=== PATIENT | female | born 1950 | race Asian ===

== ENCOUNTER 2021-01-09 10:06 | Day surgery (SDC) | payer MEDICARE, SELFPAY ==
--- NOTE | 2021-01-08 13:28 | HO.ANESPROP2 ---
Documented by User: Corrina Mike NP 01/08/21 13:29 HPI - Anesthesia Eval Consult details Narrative: 70yo F for Colonoscopy [facility] Past Medical History Medical History Hypercholesteremia Hypertension Non-insulin dependent type 2 diabetes mellitus Rectal cancer Surgical History Surgical History H/O colonoscopy H/O endoscopy H/O left breast biopsy H/O: Social History Social History Patient Tobacco Use Status: Never used Tobacco Second Hand Smoke Exposure: No Use of substances other than those prescribed or required for medical reasons: No Are you DNR?: No Advance Directives: No Advance Directives Information Provided: Yes Advance Directives on File: No Meds Allergies Allergy/AdvReac Type Severity Reaction Status Date / Time No Known Allergies Allergy Unverified 12/01/19 15:24 [No Known Allergies*] Home Medications Medication Instructions Recorded Confirmed Last Taken Type Janumet 1 tab PO BID 01/08/21 01/08/21 Unknown History amlodipine 1 tab PO DAILY 01/08/21 01/08/21 Unknown History aspirin 1 tab PO DAILY 01/08/21 01/08/21 Unknown History atorvastatin 1 tab PO BEDTIME 01/08/21 01/08/21 Unknown History glipizide 1 tab PO DAILY 01/08/21 01/08/21 Unknown History irbesartan 1 tab PO DAILY 01/08/21 01/08/21 Unknown History metoprolol succinate 1 tab PO DAILY 01/08/21 01/08/21 01/09/21 08:00 History multivitamin 01/08/21 Unknown History Exam Exam Date and Time: January 08, 2021 132 Assessment and Plan Assessment Anesthesia Assessment: Chart Reviewed Documented by User: Delfina Loera MD 01/09/21 11:27 [facility] Past Medical History Medical History Hypercholesteremia Hypertension Non-insulin dependent type 2 diabetes mellitus Rectal cancer Surgical History Surgical History H/O colonoscopy H/O endoscopy H/O left breast biopsy H/O: History of Problems with Anesthesia: No Social History Social History Patient Tobacco Use Status: Never used Tobacco Second Hand Smoke Exposure: No Use of substances other than those prescribed or required for medical reasons: No Are you DNR?: No Advance Directives: No Advance Directives Information Provided: Yes Advance Directives on File: No Meds Allergies Allergy/AdvReac Type Severity Reaction Status Date / Time No Known Allergies Allergy Unverified 12/01/19 15:24 [No Known Allergies*] Home Medications Medication Instructions Recorded Confirmed Last Taken Type Janumet 1 tab PO BID 01/08/21 01/08/21 Unknown History amlodipine 1 tab PO DAILY 01/08/21 01/08/21 Unknown History aspirin 1 tab PO DAILY 01/08/21 01/08/21 Unknown History atorvastatin 1 tab PO BEDTIME 01/08/21 01/08/21 Unknown History glipizide 1 tab PO DAILY 01/08/21 01/08/21 Unknown History irbesartan 1 tab PO DAILY 01/08/21 01/08/21 Unknown History metoprolol succinate 1 tab PO DAILY 01/08/21 01/08/21 01/09/21 08:00 History multivitamin 01/08/21 Unknown History Exam Airway Mallampati Class: II TM Dist: >3cm Neck ROM: Full Heart: RRR Lungs: CTA Assessment and Plan Assessment Anesthesia Assessment: Anesthesia Plan Discussed Final Anesthetic Review History of Problems with Anesthesia: No NPO: Yes ASA Class: II Final Preanesthetic Review: Meds/Allgs Chart Reviewed, Consent Obtained/Reviewed and Anes Risks/Benef Reviewed Patient Risk: Low Procedure Risk: Low Anesthetic Plan Anesthetic Plan: MAC: Disposition: Standard PACU
[2021-01-09 09:42] VITALS: BMI 28.8
[2021-01-09 10:21] VITALS: BP 153/82; PULSE 112; RESP 16; TEMP 37.2; O2SAT 96
[2021-01-09 10:31] LABS: Glucose, Whole Blood 191 mg/dL (60-115)
[2021-01-09] MEDS: Lactated Ringers 1,000 ML 100 ML IVCONT (10:33)
[2021-01-09 11:30] VITALS: BP 87/40; PULSE 85; RESP 16; TEMP 36.6; O2SAT 97
--- NOTE | 2021-01-09 11:33 | P.BOP_ITS ---
Brief Operative Note Date of Service: 01/09/21 Pre-op diagnosis: Hx of rectal cancer, Screening Post-op diagnosis: other (Colon polyps) Procedure: Colonoscopy to the cecum and TI with biopsy and removal of polyps Surgeon: Andreas Russo Anesthesia: MAC Was an Wrapper Stemmer Hand used for this Procedure?: No Estimated blood loss (mL): 2.0 Pathology: other (A. Cecal polyp B. Ascending colon polyp) Condition: stable Disposition: PACU
[2021-01-09 11:45] VITALS: BP 118/63; PULSE 89; RESP 17; TEMP 36.6; O2SAT 97
[2021-01-09 12:00] VITALS: BP 140/81; PULSE 85; RESP 17; TEMP 36.6; O2SAT 100
--- NOTE | 2021-01-09 20:23 | OP_ITS ---
SURGEON: Andreas Russo MD INDICATIONS: The patient presents for followup of personal history of rectal cancer and colorectal cancer screening. Full consent has been obtained from her for this, including risks of bleeding and perforation. PREOPERATIVE DIAGNOSIS: POSTOPERATIVE DIAGNOSIS: PROCEDURE PERFORMED: Colonoscopy to the cecum and terminal ileum with biopsy and removal of polyps. ESTIMATED BLOOD LOSS: COMPLICATIONS: ANESTHESIA: Monitored anesthesia care. ASSISTANTS: SPECIMENS: PREOPERATIVE DIAGNOSES: Personal history of rectal cancer, colorectal cancer screening. POSTOPERATIVE DIAGNOSES: Personal history of rectal cancer, colorectal cancer screening, small colon polyps, sigmoid diverticulosis, and internal hemorrhoids. DESCRIPTION OF PROCEDURE: The patient was placed in the left lateral decubitus position. The digital rectal exam revealed no abnormalities. The Olympus video pediatric colonoscope was entered into the rectum and advanced easily to the cecum. Once in the cecum, I did identify normal-appearing cecal pouch other than an approximately 3 mm polyp near the appendiceal orifice, that was biopsied and completely removed with cold biopsy forceps. The terminal ileum was cannulated and appeared normal. The scope was withdrawn back in the colon. The entire cecum and ileocecal valve otherwise appeared normal. The scope was slowly withdrawn assessing all mucosal surfaces carefully. Preparation was excellent. In the ascending colon, was a flat approximately 3 mm polyp, which was biopsied and completely removed with cold biopsy forceps. I did not visualize any other polyps, colitis, nor angiodysplasia. There was a mild amount of sigmoid diverticulosis. In the rectum, scope was retroflexed visualizing internal hemorrhoids. Both in the forward viewing and retroflexed positions, I was able to visualize the scar from the previous site of the rectal cancer. There were a few telangiectasias in that area as well, consistent with her previous radiation. However, I did not visualize any sign of residual abnormal tissue. The scope was withdrawn from the patient. She tolerated the procedure well and was returned to recovery area in stable condition. IMPRESSION: 1. Small colon polyps, status post biopsy and removal. 2. Sigmoid diverticulosis. 3. Internal hemorrhoids. 4. Area of scarring consistent with her previous site of the rectal cancer with some associated telangiectasias. PLAN: The results of the biopsies will be checked. I would recommend another colonoscopy in 1 to 2 years for further screening and surveillance. She was advised not to use any aspirin nor NSAIDs for 1 week. She will otherwise see on a p.r.n. basis. MD INDIRA Galvan/CRESCENCIO / [phone]
== END 2021-01-09 12:25 | disposition home or self-care (01) ==
PROVIDERS: PCP Internal Medicine; Visit Provider Internal Medicine
PROC: 0DJD8ZZ Inspection of Lower Intestinal Tract, Via Natural or Artificial Opening Endoscopic (ICD-10-PCS; CPT 45378; principal; 2021-01-09 10:20)
DX: Z12.11 Encounter for screening for malignant neoplasm of colon (principal); Z85.048 Personal history of other malignant neoplasm of rectum, rectosigmoid junction, and anus; D12.0 Benign neoplasm of cecum; D12.2 Benign neoplasm of ascending colon; K57.30 Diverticulosis of large intestine without perforation or abscess without bleeding; K64.8 Other hemorrhoids; K62.7 Radiation proctitis; I10 Essential (primary) hypertension; E11.9 Type 2 diabetes mellitus without complications; Z79.84 Long term (current) use of oral hypoglycemic drugs; Z79.82 Long term (current) use of aspirin; Z79.899 Other long term (current) drug therapy
CPT/HCPCS: 45380; 82947; 88305

== ENCOUNTER 2021-01-29 12:14 | Outpatient (REF) | payer MEDICARE, SELFPAY ==
[2021-01-29 13:58] LABS: MANUAL DIFF FLAG NO
[2021-01-29 14:09] LABS: Basophils Percent Auto 0.3 % (0-2); Eosinophils Absolute Auto 0.2 X10*3/uL (0.0-0.4); Hematocrit 34.5 % (37.0-47.0); Hemoglobin 11.5 g/dl (12.0-16.0); Imm Gran Abs Auto 0.02 X10*3/uL (0.00-0.03); Imm Gran Pct Auto 0.3 % (0.0-0.4); Lymphocytes Absolute Auto 0.9 X10*3/uL (1.2-4.9); Lymphocytes Percent Auto 14.6 % (20-40); Mean Corpuscular HGB Conc 33.3 g/dl (31.0-35.0); Mean Corpuscular Hemoglobin 28.8 pg (27.0-33.0); Mean Corpuscular Volume 86.3 fL (80.0-98.0); Mean Platelet Volume 11.6 fL (9.4-12.3); Monocytes Absolute Auto 0.4 X10*3/uL (0.1-1.2); Monocytes Percent Auto 6.5 % (2-11); Neutrophils Absolute Auto 4.8 x10*3/uL (2.0-8.3); Neutrophils Percent Auto 75.3 % (45-73); Platelet Count 239 X10*3/uL (160-400); Red Cell Distribution Width 12.8 % (11.0-16.0); White Blood Count 6.3 X10*3/uL (4.8-10.8)
[2021-01-29 14:31] LABS: Estimated Average Glucose 177 mg/dL; Hemoglobin A1c % 7.8 %
[2021-01-29 14:35] LABS: Alanine Aminotransferase 20 U/L (0-31); Albumin Level 4.6 g/dL (3.5-5.0); Alkaline Phosphatase 80 U/L (39-117); Anion Gap 13 (12-20); Aspartate Amino Transferase 17 U/L (5-31); Bilirubin Total 0.5 mg/dL (0.0-1.0); Blood Urea Nitrogen 15 mg/dL (9-16); Calcium 9.9 mg/dL (8.4-10.2); Carbon Dioxide 25 mmol/L (22-29); Chloride 104 mmol/L (96-108); Estimated Glomerular Filt Rate 58; Glucose Random 118 mg/dL (60-115); Potassium 4.3 mmol/L (3.3-5.1); Sodium 138 mmol/L (135-145); Total Protein 7.3 g/dL (6.5-8.0)
[2021-01-29 14:54] LABS: Creatinine Urine 30.04 mg/dL; Microalbum/Creatinine Ratio Ur 39.9 ug/mg cr
== END 2021-01-29 12:15 | disposition home or self-care (01) ==
LOC: HO.10HDL 12:14
PROVIDERS: Visit Provider Internal Medicine
DX: D50.8 Other iron deficiency anemias (principal); E11.9 Type 2 diabetes mellitus without complications; E78.2 Mixed hyperlipidemia; I10 Essential (primary) hypertension
CPT/HCPCS: 36415; 80053; 82043; 83036; 85025

== ENCOUNTER 2022-02-25 13:00 | Outpatient (REF) | payer MEDICARE, SELFPAY ==
[2022-02-28 05:18] LABS: HPV mRNA E6/E7 rflx Not Detected (Not Detected)
== END 2022-02-25 13:01 | disposition home or self-care (01) ==
LOC: HO.LNP 13:00
PROVIDERS: PCP Internal Medicine; Visit Provider Obstetrics & Gynecology
DX: Z12.4 Encounter for screening for malignant neoplasm of cervix (principal); Z11.51 Encounter for screening for human papillomavirus (HPV); N95.0 Postmenopausal bleeding
CPT/HCPCS: 87624; 88142; 99202

== ENCOUNTER 2022-03-05 12:36 | Outpatient (REF) | payer MEDICARE, SELFPAY | END 2022-03-05 12:37 | disposition home or self-care (01) | LOC: HO.HMGCX 12:36 | PROVIDERS: PCP Internal Medicine; Visit Provider Internal Medicine | DX: N95.0 Postmenopausal bleeding (principal) | CPT/HCPCS: 76830; 76856 ==

== ENCOUNTER 2022-03-24 07:21 | Day surgery (SDC) | payer MEDICARE, SELFPAY ==
[2022-03-20 10:28] VITALS: BMI 31.4
--- NOTE | 2022-03-21 08:09 | MHC.SHP ---
Pre-Procedural Eval Section A Date of Service: 03/21/22 The patient is an INPATIENT: No Changes since office visit: No Cold of Flu in the past 2 weeks, No New Medical Problems, No Changes in Medication and No Patient answered all questions The History & Physical has been completed within 30 days and I have reviewed it.: Yes Section B Chief Complaint: Age-related nuclear cataract, right eye Allergies: Allergies Allergy/AdvReac Type Severity Reaction Status Date / Time No Known Allergies Allergy Verified 03/20/22 10:21 [No Known Allergies*] Plan Diagnosis/Plan: Unchanged I have reviewed the history and physical and performed a pertinent physical examination on my patient. No changes have occurred unless specified. Time Spent With Patient Time: Total time managing care of this patient today ____ minutes.
[2022-03-24 07:41] VITALS: PULSE 80; RESP 18; TEMP 36.1; O2SAT 98
[2022-03-24 07:46] VITALS: BMI 31.6
[2022-03-24 07:59] LABS: Glucose, Whole Blood 153 mg/dL (60-115)
[2022-03-24] MEDS: Phenylephrine HCL 2.5% Oph SoL 2 ML BOTTLE 1 DROP EYE-RIGHT ×3 (08:06→08:10)
[2022-03-24] MEDS: Ketorolac Tromethamine 0.5% Op 5 ML DROPS 1 DROP EYE-RIGHT ×3 (08:06→08:11)
[2022-03-24] MEDS: Tetracaine HCl/PF 0.5% Oph Sol 4 ML DROPS 1 DROP EYE-RIGHT (08:06)
[2022-03-24] MEDS: Tropicamide 1 % Ophth Sol 3 ML BTL 1 DROP EYE-RIGHT ×3 (08:07→08:11)
[2022-03-24] MEDS: Cyclopentolate 1 % Ophth Sol 2 ML DRPBTL 1 DROP EYE-RIGHT ×3 (08:07→08:11)
--- NOTE | 2022-03-24 08:39 | P.CONAN_ITS ---
Documented by User: Sergio Pelletier MD 03/24/22 08:43 [facility] Past Medical History Medical History Hypercholesteremia Hypertension Non-insulin dependent type 2 diabetes mellitus On beta fernando at home Rectal cancer Family History Family history of problems with anesthesia: No Surgical History Surgical History H/O colonoscopy H/O endoscopy H/O left breast biopsy H/O: Social History Social History Household Members Other:: Daughter will be here to help Are you a primary youth care specialist to a significant other at home: No Do you presently have visiting nurse or other home services: No Patient Tobacco Use Status: Never used Tobacco Second Hand Smoke Exposure: No Use of substances other than those prescribed or required for medical reasons: No Have you been hit, kicked, punched, or otherwise hurt by someone within the past year? If so, by whom?: No Are you DNR?: No Advance Directives: No Advance Directives Information Provided: Yes Advance Directives on File: No Recently lost weight without trying: No Eating poorly because of decreased appetite: No Nutrition Risks: No Nutritional Risk Patient : No Meds Allergies Allergy/AdvReac Type Severity Reaction Status Date / Time JA Inhibitors AdvReac LARYNGEAL Verified 03/21/22 10:52 EDEMA Home Medications Medication Instructions Recorded Confirmed Last Taken Type amlodipine 10 mg tablet 1 tab PO DAILY 02/21/22 03/20/22 03/24/22 History aspirin 81 mg tablet,delayed 1 tab PO DAILY 02/21/22 03/20/22 Unknown History release irbesartan 300 mg tablet 1 tab PO DAILY 02/21/22 03/20/22 Unknown History metoprolol succinate 100 mg 1 tab PO DAILY 02/21/22 03/20/22 03/24/22 History tablet,extended release 24 hr multivitamin 1 tab PO DAILY 02/21/22 03/20/22 Unknown History sitagliptin phosphate 50 1 tab PO BID 02/21/22 03/20/22 03/24/22 History mg-metformin 1,000 mg tablet (Rodgerumetammie) albuterol sulfate 90 mcg/actuation 2 puff inhalation QID PRN Wheezing 03/19/22 03/20/22 Unknown History aerosol inhaler budesonide 160 mcg-glycopyr 9 2 inh inhalation BID 03/19/22 03/20/22 Unknown History mcg-formot 4.8 mcg/actuation HFA inhaler (Breztri Aerosphere) ferrous fumarate 324 mg (106 mg 1 tab PO DAILY 03/19/22 03/20/22 Unknown History iron) tablet fluticasone propionate 110 2 puff inhalation BID 03/19/22 03/20/22 Unknown History mcg/actuation HFA aerosol inhaler (Flovent HFA) glipizide 2.5 mg tablet, extended 1 tab PO DAILY 03/19/22 03/20/22 Unknown History release 24 hr rosuvastatin 20 mg tablet 1 tab PO BEDTIME 03/19/22 03/20/22 Unknown History Exam Airway Mallampati Class: II TM Dist: >3cm Neck ROM: Full Loose/Missing/Broken Teeth: Yes (poor dentition multiple chips globally) Heart: [id number] Lungs: cta b/l Assessment and Plan Assessment Anesthesia Assessment: Anesthesia Plan Discussed and Chart Reviewed Final Anesthetic Review Family History of Problems with Anesthesia: No NPO: Yes ASA Class: III Final Preanesthetic Review: No Changes in Pt Med Stat, Meds/Allgs Chart Reviewed, Consent Obtained/Reviewed and Anes Risks/Benef Reviewed Patient Risk: Intermediate Procedure Risk: Low Assessment/Block/Sedation in SS: Assess/Block/Sedation-SS Anesthetic Plan Anesthetic Plan: MAC: and Agree w/ Assess. and Plan Disposition: Standard PACU Documented by User: Lorraine Staples MD [facility] Active Problems Active Problems: All Active Problems (Updated 02/25/22 @ 13:35 by Yasmani Hoover MD) Postmenopausal bleeding (Acute) Past Medical History Medical History Hypercholesteremia Hypertension Non-insulin dependent type 2 diabetes mellitus On beta fernando at home Rectal cancer Surgical History Surgical History H/O colonoscopy H/O endoscopy H/O left breast biopsy H/O: History of Problems with Anesthesia: No Social History Social History Household Members Other:: Daughter will be here to help Are you a primary youth care specialist to a significant other at home: No Do you presently have visiting nurse or other home services: No Patient Tobacco Use Status: Never used Tobacco Second Hand Smoke Exposure: No Use of substances other than those prescribed or required for medical reasons: No Have you been hit, kicked, punched, or otherwise hurt by someone within the past year? If so, by whom?: No Are you DNR?: No Advance Directives: No Advance Directives Information Provided: Yes Advance Directives on File: No Recently lost weight without trying: No Eating poorly because of decreased appetite: No Nutrition Risks: No Nutritional Risk Patient : No Meds Allergies Allergy/AdvReac Type Severity Reaction Status Date / Time JA Inhibitors AdvReac LARYNGEAL Verified 03/21/22 10:52 EDEMA Active Medications: Current Medications Povidone Iodine (Povidone Iodine 5 % Ophth Soln 30 Ml Bottle) 1 appl EYE-RIGHT PREOP PRN PRN Reason: Pre-Op Surgical Implant Prophy Home Medications Medication Instructions Recorded Confirmed Last Taken Type amlodipine 10 mg tablet 1 tab PO DAILY 02/21/22 03/20/22 03/24/22 History aspirin 81 mg tablet,delayed 1 tab PO DAILY 02/21/22 03/20/22 Unknown History release irbesartan 300 mg tablet 1 tab PO DAILY 02/21/22 03/20/22 Unknown History metoprolol succinate 100 mg 1 tab PO DAILY 02/21/22 03/20/22 03/24/22 History tablet,extended release 24 hr multivitamin 1 tab PO DAILY 02/21/22 03/20/22 Unknown History sitagliptin phosphate 50 1 tab PO BID 02/21/22 03/20/22 03/24/22 History mg-metformin 1,000 mg tablet (Sandra) albuterol sulfate 90 mcg/actuation 2 puff inhalation QID PRN Wheezing 03/19/22 03/20/22 Unknown History aerosol inhaler budesonide 160 mcg-glycopyr 9 2 inh inhalation BID 03/19/22 03/20/22 Unknown History mcg-formot 4.8 mcg/actuation HFA inhaler (Breztri Aerosphere) ferrous fumarate 324 mg (106 mg 1 tab PO DAILY 03/19/22 03/20/22 Unknown History iron) tablet fluticasone propionate 110 2 puff inhalation BID 03/19/22 03/20/22 Unknown History mcg/actuation HFA aerosol inhaler (Flovent HFA) glipizide 2.5 mg tablet, extended 1 tab PO DAILY 03/19/22 03/20/22 Unknown History release 24 hr rosuvastatin 20 mg tablet 1 tab PO BEDTIME 03/19/22 03/20/22 Unknown History Exam Exam Date and Time: March 24, 2022 0839 Height,Weight and Vital Signs: Height 4 ft 7 in Weight 61.689 kg Last Vital Signs Temp 97.0 F 03/24/22 07:41 Pulse 80 03/24/22 07:41 Resp 18 03/24/22 07:41 Pulse Ox 98 03/24/22 07:41 O2 Del Method 03/24/22 07:41 Pertinent Lab Results Pertinent Lab Results: Laboratory Tests 03/24/22 07:55 POC Glucose 153 H Assessment and Plan Final Anesthetic Review History of Problems with Anesthesia: No
--- NOTE | 2022-03-24 08:50 | HO.PNOPHT ---
Ophthalmology Procedure Procedure Date of Service: 03/24/22 Ophthalmology Viscoelastic: Mendel Cisnerost Dual Pack Pro Ophthalmology Lenses: TECDESTINEE [id number] (22) Procedure Notes: PREOPERATIVE DIAGNOSIS: Decreased visual acuity right eye secondary to cataract POSTOPERATIVE DIAGNOSIS: Same PROCEDURE: Right cataract extraction with intraocular lens insertion SURGEON: Harjit Chaudhary M.D. ANESTHESIA: Topical/MAC ESTIMATED BLOOD LOSS: None COMPLICATIONS: None After obtaining informed consent, the patient was brought to the operating room suite and placed in the supine position. After adequate sedation per anesthesia, topical drops of Tetracaine were given to the right eye. The eye was then prepped and draped in the usual sterile fashion. The operating room microscope was then positioned over the operative eye and a lid speculum placed. A paracentesis was created. Viscoelastic was then instilled into the anterior chamber. A three plane incision was then created temporally, utilizing a 2.85 mm keratome. Capsulotomy forceps were then utilized to create a circular tear capsulotomy. Hydrodissection and hydrodelineation were carried out until adequate mobilization of the nucleus occurred. Phacoemulsification was then utilized to remove the dense central nucleus followed by removal of the cortical material utilizing the automated aspiration irrigation unit. Viscoelastic was instilled into the posterior capsular bag followed by placement of a posterior chamber intraocular lens without difficulty. The residual Viscoelastic was then removed utilizing the automated IA machine. The wound was checked and found to be watertight. The patient tolerated the procedure well and the lid speculum was removed. Intracameral injection of Vigamox 0.1 mL followed by a subtenon injection of Kenalog-40 0.2 mL were administered. The patient will be seen in the a.m.
[2022-03-24 09:09] VITALS: BP 150/69; PULSE 85; RESP 18; TEMP 36.8; O2SAT 100
[2022-03-24 09:14] VITALS: BP 138/70; PULSE 76; RESP 18; TEMP 36.8; O2SAT 100
== END 2022-03-24 09:26 | disposition home or self-care (01) ==
PROVIDERS: PCP Internal Medicine; Visit Provider Ophthalmology
PROC: (CPT 66985; principal; 2022-03-24 09:10)
DX: H25.11 Age-related nuclear cataract, right eye (principal); H52.4 Presbyopia; E11.3292 Type 2 diabetes mellitus with mild nonproliferative diabetic retinopathy without macular edema, left eye; I10 Essential (primary) hypertension; E78.00 Pure hypercholesterolemia, unspecified; Z79.84 Long term (current) use of oral hypoglycemic drugs; Z79.899 Other long term (current) drug therapy; Z79.82 Long term (current) use of aspirin; Z88.8 Allergy status to other drugs, medicaments and biological substances; Z85.048 Personal history of other malignant neoplasm of rectum, rectosigmoid junction, and anus; Z92.21 Personal history of antineoplastic chemotherapy; Z92.3 Personal history of irradiation
CPT/HCPCS: 66984; 82947; J3301; V2632

== ENCOUNTER → 2022-03-31 14:09 | Outpatient (BNVA) | payer MEDICARE, SELFPAY | PROVIDERS: PCP Internal Medicine; Visit Provider Obstetrics & Gynecology | DX: N95.0 Postmenopausal bleeding (principal) | CPT/HCPCS: 99212 ==

== ENCOUNTER 2022-04-07 08:25 | Day surgery (SDC) | payer MEDICARE, SELFPAY ==
[2022-03-20 10:36] VITALS: BMI 31.4
--- NOTE | 2022-04-04 10:12 | MHC.SHP ---
Pre-Procedural Eval Section A Date of Service: 04/04/22 The patient is an INPATIENT: No Changes since office visit: No Cold of Flu in the past 2 weeks, No New Medical Problems, No Changes in Medication and No Patient answered all questions The History & Physical has been completed within 30 days and I have reviewed it.: Yes Section B Chief Complaint: Age-related nuclear cataract, left eye Allergies: Allergies Allergy/AdvReac Type Severity Reaction Status Date / Time JA Inhibitors AdvReac LARYNGEAL Verified 03/31/22 14:17 EDEMA Plan Diagnosis/Plan: Unchanged I have reviewed the history and physical and performed a pertinent physical examination on my patient. No changes have occurred unless specified. Time Spent With Patient Time: Total time managing care of this patient today ____ minutes.
[2022-04-07] MEDS: Lactated Ringers 500 ML 20 ML IVCONT (08:57)
[2022-04-07] MEDS: Tetracaine HCl/PF 0.5% Oph Sol 4 ML DROPS 1 DROP EYE-LEFT (08:57)
[2022-04-07] MEDS: Cyclopentolate 1 % Ophth Sol 2 ML DRPBTL 1 DROP EYE-LEFT ×2 (08:58→09:06)
[2022-04-07] MEDS: Ketorolac Tromethamine 0.5% Op 5 ML DROPS 1 DROP EYE-LEFT ×3 (08:58→09:11)
[2022-04-07] MEDS: Phenylephrine HCL 2.5% Oph SoL 2 ML BOTTLE 1 DROP EYE-LEFT ×3 (08:58→09:11)
[2022-04-07 09:08] LABS: Glucose, Whole Blood 140 mg/dL (60-115)
[2022-04-07] MEDS: Tropicamide 1 % Ophth Sol 3 ML BTL 1 DROP EYE-LEFT (09:11)
[2022-04-07 09:14] VITALS: BP 145/63; PULSE 86; RESP 18; TEMP 36.6; O2SAT 96
--- NOTE | 2022-04-07 09:14 | HO.ANESPROP2 ---
[facility] Active Problems Active Problems: All Active Problems (Updated 02/25/22 @ 13:35 by Yasmani Hoover MD) Postmenopausal bleeding (Acute) Past Medical History Medical History Hypercholesteremia Hypertension Non-insulin dependent type 2 diabetes mellitus On beta fernando at home Rectal cancer Family History Family history of problems with anesthesia: No Surgical History Surgical History H/O colonoscopy H/O endoscopy H/O left breast biopsy H/O: History of Problems with Anesthesia: No Social History Social History Household Members Other:: Daughter will be here to help Are you a primary assurance services manager health care to a significant other at home: No Do you presently have visiting nurse or other home services: No Patient Tobacco Use Status: Never used Tobacco Second Hand Smoke Exposure: No Use of substances other than those prescribed or required for medical reasons: No Have you been hit, kicked, punched, or otherwise hurt by someone within the past year? If so, by whom?: No Are you DNR?: No Advance Directives: No Advance Directives Information Provided: Yes Advance Directives on File: No Recently lost weight without trying: No Eating poorly because of decreased appetite: No Nutrition Risks: No Nutritional Risk Meds Allergies Allergy/AdvReac Type Severity Reaction Status Date / Time JA Inhibitors AdvReac LARYNGEAL Verified 04/07/22 08:44 EDEMA Active Medications: Current Medications Lactated Ringer's (Lr) 500 mls @ 20 mls/hr IVCONT .Q24H [place] Last Admin: 04/07/22 08:57 Dose: 20 mls/hr Povidone Iodine (Povidone Iodine 5 % Ophth Soln 30 Ml Bottle) 1 appl EYE-LEFT PREOP PRN PRN Reason: Pre-Op Surgical Implant Prophy Home Medications Medication Instructions Recorded Confirmed Last Taken Type amlodipine 10 mg tablet 1 tab PO DAILY 02/21/22 03/20/22 04/07/22 History aspirin 81 mg tablet,delayed 1 tab PO DAILY 02/21/22 03/20/22 Unknown History release irbesartan 300 mg tablet 1 tab PO DAILY 02/21/22 03/20/22 04/07/22 History metoprolol succinate 100 mg 1 tab PO DAILY 02/21/22 03/20/22 04/07/22 History tablet,extended release 24 hr multivitamin 1 tab PO DAILY 02/21/22 03/20/22 Unknown History sitagliptin phosphate 50 1 tab PO BID 02/21/22 03/20/22 03/24/22 History mg-metformin 1,000 mg tablet (Janumet) albuterol sulfate 90 mcg/actuation 2 puff inhalation QID PRN Wheezing 03/19/22 03/20/22 Unknown History aerosol inhaler budesonide 160 mcg-glycopyr 9 2 inh inhalation BID 03/19/22 03/20/22 Unknown History mcg-formot 4.8 mcg/actuation HFA inhaler (GrabCADzClauseMatchi Pyroliaphere) ferrous fumarate 324 mg (106 mg 1 tab PO DAILY 03/19/22 03/20/22 Unknown History iron) tablet fluticasone propionate 110 2 puff inhalation BID 03/19/22 03/20/22 Unknown History mcg/actuation HFA aerosol inhaler (Flovent HFA) glipizide 2.5 mg tablet, extended 1 tab PO DAILY 03/19/22 03/20/22 Unknown History release 24 hr rosuvastatin 20 mg tablet 1 tab PO BEDTIME 03/19/22 03/20/22 Unknown History Exam Exam Date and Time: April 07, 2022913 Height,Weight and Vital Signs: Height 4 ft 7 in Weight 61.235 kg Pertinent Lab Results Pertinent Lab Results: Laboratory Tests 04/07/22 09:04 POC Glucose 140 H Airway Mallampati Class: III TM Dist: >3cm Neck ROM: Full Loose/Missing/Broken Teeth: No Heart: RRR Lungs: CTA Assessment and Plan Final Anesthetic Review Family History of Problems with Anesthesia: No History of Problems with Anesthesia: No ASA Class: II Final Preanesthetic Review: Meds/Allgs Chart Reviewed, Consent Obtained/Reviewed and Anes Risks/Benef Reviewed Patient Risk: Low Procedure Risk: Low Anesthetic Plan Anesthetic Plan: MAC: Disposition: Standard PACU
--- NOTE | 2022-04-07 10:06 | HO.PNOPHT ---
Ophthalmology Procedure Procedure Date of Service: 04/07/22 Ophthalmology Viscoelastic: Healtatyana Cisnerost Dual Pack Pro Ophthalmology Lenses: TECNIS [id number] (22.5) Procedure Notes: PREOPERATIVE DIAGNOSIS: Decreased visual acuity left eye secondary to cataract POSTOPERATIVE DIAGNOSIS: Same PROCEDURE: Left cataract extraction with intraocular lens insertion SURGEON: Harjit Chaudhary M.D. ANESTHESIA: Topical/MAC ESTIMATED BLOOD LOSS: None COMPLICATIONS: None After obtaining informed consent, the patient was brought to the operation room suite and placed in the supine position. After adequate sedation per anesthesia, topical drops of Tetracaine were given to the left eye. The eye was then prepped and draped in the usual sterile fashion. The operating room microscope was then positioned over the operative eye and a lid speculum placed. A paracentesis was created. Viscoelastic was then instilled into the anterior chamber. A three plane incision was then created temporally, utilizing a 2.85 mm keratome. Capsulotomy forceps were then utilized to create a circular tear capsulotomy. Hydrodissection and hydrodelineation were carried out until adequate mobilization of the nucleus occurred. Phacoemulsification was then utilized to remove the dense central nucleus followed by removal of the cortical material utilizing the automated aspiration irrigation unit. Viscoat elastic was instilled into the posterior capsular bag followed by placement of a posterior chamber intraocular lens without difficulty. The residual Viscoat elastic was then removed utilizing the automated IA machine. The wound was check and found to be watertight. The patient tolerated the procedure well and the lid speculum was removed. Intracameral injection of Vigamox 0.1 mL followed by a subtenon injection of Kenalog-40 0.2 mL were administered. The patient will be seen in the a.m.
[2022-04-07 10:31] VITALS: BP 134/57; PULSE 84; RESP 16; TEMP 36.6; O2SAT 97
== END 2022-04-07 10:42 | disposition home or self-care (01) ==
PROVIDERS: PCP Internal Medicine; Visit Provider Ophthalmology
PROC: (CPT 66985; principal; 2022-04-07 10:30)
DX: H25.12 Age-related nuclear cataract, left eye (principal); H52.4 Presbyopia; E11.3292 Type 2 diabetes mellitus with mild nonproliferative diabetic retinopathy without macular edema, left eye; Z79.84 Long term (current) use of oral hypoglycemic drugs; I10 Essential (primary) hypertension; Z79.899 Other long term (current) drug therapy; Z79.82 Long term (current) use of aspirin; Z85.048 Personal history of other malignant neoplasm of rectum, rectosigmoid junction, and anus; Z87.891 Personal history of nicotine dependence
CPT/HCPCS: 66984; 82947; J2250; J3301; V2632

== ENCOUNTER 2022-05-14 11:38 | Outpatient (REF) | payer MEDICARE, SELFPAY ==
[2022-05-14 13:43] LABS: Estimated Average Glucose 166 mg/dL; Hemoglobin A1c % 7.4 %
== END 2022-05-14 11:39 | disposition home or self-care (01) ==
LOC: HO.10HDL 11:38
PROVIDERS: Visit Provider Internal Medicine
DX: I10 Essential (primary) hypertension (principal); E78.00 Pure hypercholesterolemia, unspecified; H25.13 Age-related nuclear cataract, bilateral; E11.9 Type 2 diabetes mellitus without complications
CPT/HCPCS: 36415; 83036

== ENCOUNTER 2023-05-12 11:10 | Outpatient (AMB) | payer MEDICARE, SELFPAY ==
--- NOTE | 2023-05-12 11:21 | A.OFFVIS_ITS ---
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 No complaints except bilateral vulvar irritation. Last Pap/HPV was in 03/06 was negative Last Mammogram was 2 years ago Last Colonoscopy was in 01/03, the recommendation was to repeat in 1-2 years, next screening colonoscopy scheduled in few weeks [facility] Medical History On beta fernando at home Rectal cancer Hypercholesteremia Hypertension Non-insulin dependent type 2 diabetes mellitus Surgical History H/O left breast biopsy H/O: H/O endoscopy H/O colonoscopy Social History Household Members Other:: Daughter will be here to help Are you a primary career placement services counselor to a significant other at home: No Do you presently have visiting nurse or other home services: No Patient Tobacco Use Status: Never used Tobacco Second Hand Smoke Exposure: No Female Reproductive History Menstrual Age of Menarche: 12 Menopause type: natural Total pregnancies: 1 Full term: 1 Number of Living Children: 1 Date of last pap smear: 02/25/22 Review of Systems Const All systems reviewed & are unremarkable except as noted in HPI and below Card Reports as per HPI Resp Reports as per HPI GI Reports as per HPI and Reports no additional complaints Reports as per HPI Physical Exam Const General: cooperative, healthy appearing and comfortable Chest Chest palpation & inspection: normal inspection of the chest and normal palpation of entire chest wall Breast/axilla inspection: normal inspection of the breasts and normal inspection of the axillae Breast/axilla palpation: normal palpation of the breasts, normal palpation of the axillae and no axillary lymphadenopathy Resp Effort & Inspection: normal respiratory effort Auscultation: clear to auscultation bilaterally Percussion: percussion normal Cardio Palpation: normal PMI Rate: regular rate Rhythm: regular rhythm Heart sounds: no murmurs and no rubs Peripheral pulses: Peripheral pulses 2+ throughout GI Inspection: Yes normal to inspection Palpation (GI): Soft to palpation, nontender, no guarding, not rigid and No h epatosplenomegaly present Percussion: Yes normal to percussion Auscultation: normal bowel sounds Rectal Exam - Female: deferred General: Yes bladder normal to palpation External Female Exam: No lesion Speculum Exam - Vagina: normal appearance of the vagina, normal palpation, normal vaginal discharge and not erythematous Speculum Exam - Cervix: normal appearance of the cervix and normal palpation Bimanual exam- vagina & uterus: normal bimanual exam, normal palpation, uterine size normal, bladder normal to palpation, consistency normal and normal palpation Bimanual Exam- Adnexa, other: normal adnexae, no masses and no tenderness Assessment & Plan Assessment & Plan (1) Well woman exam: Code(s): Z01.419 - Encounter for gynecological examination (general) (routine) without abnormal findings Plan: Co testing not indicated since the patient 's age is above 65 with no history of abnormal Pap smears last 25 years. Counseled the patient about the recommended dietary allowance of 1200 mg of Calcium & 800 IU of vitamin D. Mammogram ordered. The patient has her next screening colonoscopy schedule. Will order DEXA scan . The patient was instructed to perform monthly self-breast exams and to schedule a 2 week DEXA scan follow-up appointment and an annual exam in a year; All questions answered and the patient verbalized understanding. (2) Vulvar irritation: Code(s): N90.89 - Other specified noninflammatory disorders of vulva and perineum Plan: Recommended [id number] 1% hydrocortisone cream b.i.d. for 5 days, if symptoms do not improve instructions given the patient to call back for inspection, possible vulvar biopsy or treatment with medium or high potency cortisone. All questions answered, the patient verbalized understanding Orders: Orders XR DEXA axial skeleton Today Z78.0 - Asymptomatic menopausal state MM tomosynthesis screening BI Today Z12.31 - Encounter for screening mammogram for malignant neoplasm of breast Coding Level of Care Code Est Pt Prev Care >65y(26449) Diagnoses Well woman exam Z01.419 Vulvar irritation N90.89
[2023-05-12 11:24] VITALS: BP 110/60; BMI 29.4
== END 2023-05-12 12:13 | disposition home or self-care (01) ==
LOC: HO.HWS 11:11
PROVIDERS: PCP Internal Medicine; Visit Provider Obstetrics & Gynecology
DX: Z01.419 Encounter for gynecological examination (general) (routine) without abnormal findings (principal); N90.89 Other specified noninflammatory disorders of vulva and perineum
CPT/HCPCS: 99213; G0101

== ENCOUNTER → 2023-05-12 11:10 | Outpatient (BNVA) | payer MEDICARE, SELFPAY | PROVIDERS: PCP Internal Medicine; Visit Provider Obstetrics & Gynecology | DX: Z01.419 Encounter for gynecological examination (general) (routine) without abnormal findings (principal); N90.89 Other specified noninflammatory disorders of vulva and perineum | CPT/HCPCS: 99212; G0101 ==

== ENCOUNTER 2023-06-19 07:23 | Day surgery (SDC) | payer MEDICARE, SELFPAY ==
--- NOTE | 2023-06-17 13:01 | HO.ANESPROP2 ---
Documented by User: Corrina Mike NP 06/17/23 13:02 HPI - Anesthesia Eval Consult details Narrative: 73yo F for Colonoscopy Anesthesia Pre-Procedure Meds Is the patient on any of the following meds?: Any other SGL-1 drugs or drugs that delay gastric emptying (Januvia combo) PMFSH Active Problems Active Problems: All Active Problems (Updated 05/12/23 @ 11:52 by Yasmani Hoover MD) Vulvar irritation (Acute) Well woman exam (Acute) Postmenopausal bleeding (Acute) Past Medical History Medical History (Updated 06/19/23 @ 08:28 by Abeba Luna MD) On beta fernando at home Rectal cancer Hypercholesteremia Hypertension Non-insulin dependent type 2 diabetes mellitus Family History Family history of problems with anesthesia: No Surgical History Surgical History Hx of bilateral cataract extraction H/O left breast biopsy H/O: H/O endoscopy H/O colonoscopy History of Problems with Anesthesia: No Social History Social History Household Members Other:: Daughter will be here to help Are you a primary nurse behavioral health care to a significant other at home: No Do you presently have visiting nurse or other home services: No Patient Tobacco Use Status: Never used Tobacco Second Hand Smoke Exposure: No Use of substances other than those prescribed or required for medical reasons: No Are you DNR?: No Advance Directives: No Advance Directives Information Provided: Yes Meds Allergies Allergy/AdvReac Type Severity Reaction Status Date / Time JA Inhibitors AdvReac LARYNGEAL Verified 06/19/23 07:56 EDEMA Home Medications ?Medication ?Instructions ?Recorded ?Confirmed ?Last Taken ?Type aspirin 81 mg tablet,delayed 1 tab PO DAILY 02/21/22 06/19/23 06/12/23 History release irbesartan 300 mg tablet 1 tab PO DAILY 02/21/22 06/19/23 06/19/23 06:15 History metoprolol succinate 100 mg 1 tab PO DAILY 02/21/22 06/19/23 06/19/23 06:15 History tablet,extended release 24 hr albuterol sulfate 90 mcg/actuation 2 puff inhalation QID PRN Wheezing 03/19/22 06/19/23 Unknown History aerosol inhaler rosuvastatin 20 mg tablet 1 tab PO BEDTIME 03/19/22 06/19/23 Unknown History amlodipine 5 mg tablet 5 mg PO DAILY 06/17/23 06/19/23 Unknown History ezetimibe 10 mg tablet 10 mg PO DAILY 06/17/23 06/19/23 Unknown History glipizide 5 mg tablet, extended 5 mg PO DAILY 06/17/23 06/19/23 Unknown History release 24 hr sitagliptin phosphate 50 1 tab PO BID 06/19/23 06/19/23 06/16/23 History mg-metformin 1,000 mg tablet (Janumet) Assessment and Plan Assessment Anesthesia Assessment: Chart Reviewed Final Anesthetic Review Family History of Problems with Anesthesia: No History of Problems with Anesthesia: No Documented by User: Abeba Luna MD 06/19/23 08:32 HPI - Anesthesia Eval Consult details Narrative: 73yo F for Colonoscopy On Janumet. Last dose 3 days ago 06/16/23 Anesthesia Pre-Procedure Meds Is the patient on any of the following meds?: Any other SGL-1 drugs or drugs that delay gastric emptying (Januvia combo. Last dose 06/16/23) If Yes to any meds - educate patient: Pt education - increased risk of aspiration PMFSH Active Problems Active Problems: All Active Problems (Updated 06/19/23 @ 08:18 by Abeba Luna MD) Vulvar irritation (Acute) Well woman exam (Acute) Postmenopausal bleeding (Acute) Inhaler prn- No diagnosis of asthma. Occ SOB Past Medical History Medical History (Updated 06/19/23 @ 08:28 by Abeba Luna MD) On beta fernando at home Rectal cancer Hypercholesteremia Hypertension Non-insulin dependent type 2 diabetes mellitus Family History Family history of problems with anesthesia: No Surgical History Surgical History Hx of bilateral cataract extraction H/O left breast biopsy H/O: H/O endoscopy H/O colonoscopy History of Problems with Anesthesia: No Social History Social History Household Members Other:: Daughter will be here to help Are you a primary nurse behavioral health care to a significant other at home: No Do you presently have visiting nurse or other home services: No Patient Tobacco Use Status: Never used Tobacco Second Hand Smoke Exposure: No Use of substances other than those prescribed or required for medical reasons: No Are you DNR?: No Advance Directives: No Advance Directives Information Provided: Yes Meds Allergies Allergy/AdvReac Type Severity Reaction Status Date / Time JA Inhibitors AdvReac LARYNGEAL Verified 06/19/23 07:56 EDEMA Home Medications ?Medication ?Instructions ?Recorded ?Confirmed ?Last Taken ?Type aspirin 81 mg tablet,delayed 1 tab PO DAILY 02/21/22 06/19/23 06/12/23 History release irbesartan 300 mg tablet 1 tab PO DAILY 02/21/22 06/19/23 06/19/23 06:15 History metoprolol succinate 100 mg 1 tab PO DAILY 02/21/22 06/19/23 06/19/23 06:15 History tablet,extended release 24 hr albuterol sulfate 90 mcg/actuation 2 puff inhalation QID PRN Wheezing 03/19/22 06/19/23 Unknown History aerosol inhaler rosuvastatin 20 mg tablet 1 tab PO BEDTIME 03/19/22 06/19/23 Unknown History amlodipine 5 mg tablet 5 mg PO DAILY 06/17/23 06/19/23 Unknown History ezetimibe 10 mg tablet 10 mg PO DAILY 06/17/23 06/19/23 Unknown History glipizide 5 mg tablet, extended 5 mg PO DAILY 06/17/23 06/19/23 Unknown History release 24 hr sitagliptin phosphate 50 1 tab PO BID 06/19/23 06/19/23 06/16/23 History mg-metformin 1,000 mg tablet (Sandra) Exam Height,Weight and Vital Signs: Height 4 ft 10 in Weight 62.324 kg Vital Signs Temp Pulse Resp BP Pulse Ox O2 Del Method 06/19/23 08:18 98.2 F 86 15 150/59 H 96 Room Air Pertinent Lab Results Pertinent Lab Results: POC 161mg/dL Airway Mallampati Class: II TM Dist: >3cm Neck ROM: Full Loose/Missing/Broken Teeth: No (Denies broken, loose, missing teeth) Heart: RRR Lungs: CTAB Assessment and Plan Assessment Anesthesia Assessment: Anesthesia Plan Discussed and Chart Reviewed Final Anesthetic Review Family History of Problems with Anesthesia: No History of Problems with Anesthesia: No NPO: Yes ASA Class: III Final Preanesthetic Review: No Changes in Pt Med Stat, Meds/Allgs Chart Reviewed, Consent Obtained/Reviewed and Anes Risks/Benef Reviewed Patient Risk: Intermediate Procedure Risk: Low Assessment/Block/Sedation in SS: Assess/Block/Sedation-SS Anesthetic Plan Anesthetic Plan: MAC: and TIVA Disposition: Standard PACU
[2023-06-17 13:58] VITALS: BMI 28.2
[2023-06-19 07:57] VITALS: BMI 28.7
[2023-06-19 08:18] VITALS: BP 150/59; PULSE 86; RESP 15; TEMP 36.8; O2SAT 96
[2023-06-19] MEDS: Lactated Ringers 1,000 ML 100 ML IVCONT (08:19)
[2023-06-19 08:31] LABS: Glucose, Whole Blood 161 mg/dL (60-115)
[2023-06-19 09:36] VITALS: BP 123/62; PULSE 87; RESP 16; TEMP 36.3; O2SAT 96
--- NOTE | 2023-06-19 09:37 | PM.OP ---
Brief Operative Note Date of Service: 06/19/23 Pre-op diagnosis: Screening Post-op diagnosis: other (Colon polyp) Procedure: Colonoscopy to the cecum and TI with bx/removal of polyp Surgeon: Andreas Russo MD Anesthesia: MAC Was an Sr Community Manager used for this Procedure?: No Estimated blood loss (mL): 2.0 Pathology: other (A. Polyp at 20cm) Condition: stable Disposition: PACU
[2023-06-19 09:41] VITALS: BP 137/69; PULSE 81; RESP 16; O2SAT 98
[2023-06-19 09:46] VITALS: BP 149/80; PULSE 81; RESP 16; O2SAT 97
[2023-06-19 09:51] VITALS: BP 152/71; PULSE 86; RESP 16; O2SAT 97
[2023-06-19 10:06] VITALS: BP 155/75; PULSE 84; RESP 16; TEMP 36.1; O2SAT 97
--- NOTE | 2023-06-19 10:45 | OP_ITS ---
DATE OF SERVICE: 06/19/2023 SURGEON: Andreas Russo MD INDICATIONS: The patient presents for evaluation of a personal history of rectal cancer and tubular adenomas of the colon and colorectal cancer screening. Full consent has been obtained from her for this, including risks of bleeding and perforation. PREOPERATIVE DIAGNOSIS: POSTOPERATIVE DIAGNOSIS: PROCEDURE PERFORMED: Colonoscopy to the cecum and terminal ileum with biopsy and removal of polyp. ESTIMATED BLOOD LOSS: COMPLICATIONS: ANESTHESIA: Monitored anesthesia care. ASSISTANTS: SPECIMENS: PREOPERATIVE DIAGNOSES: Colorectal cancer screening, personal history of rectal cancer, personal history of tubular adenoma of the colon. 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 DESCRIPTION OF PROCEDURE: The patient was placed in the left lateral decubitus position. The digital rectal exam revealed no abnormalities. The Spreadsave video pediatric colonoscope was entered into the rectum and advanced easily to the cecum. Once in the cecum, I did identify normal-appearing cecal pouch with appendiceal orifice and a normal-appearing ileocecal valve. The terminal ileum was cannulated and appeared normal. Scope was withdrawn back in the colon. The entire cecum and ileocecal valve appeared normal. The scope was slowly withdrawn assessing all mucosal surfaces carefully. Preparation was excellent. At 20 cm was a 3 mm polyp, which was biopsied and completely removed with a cold biopsy forceps. I did not visualize any other polyps, colitis, or angiodysplasia. There was a mild amount of sigmoid diverticulosis. In the rectum, scope was retroflexed visualizing some telangiectasias in the distal rectum, which were not bleeding. Seen best in the forward viewing position just above the dentate line was a scar consistent with the previous site of her rectal cancer. There was no sign of any polyp tissue nor any other abnormality at this area. There was no friability. The scope was then withdrawn from the patient. She tolerated the procedure well and was returned to the recovery area in stable condition. IMPRESSION: 1. Colon polyp. 2. Diverticulosis. 3. Rectal telangiectasias. 4. Internal hemorrhoids. PLAN: The results of the biopsy will be checked. I would recommend a repeat colonoscopy within 2 to 3 years. She was advised not to use any aspirin or NSAIDs for 1 week. She will otherwise see me on a p.r.n. basis. This has been discussed with her daughter. MD INDIRA Galvan/CRESCENCIO / [phone]
== END 2023-06-19 10:25 | disposition home or self-care (01) ==
PROVIDERS: PCP Internal Medicine; Visit Provider Internal Medicine
PROC: 0DJD8ZZ Inspection of Lower Intestinal Tract, Via Natural or Artificial Opening Endoscopic (ICD-10-PCS; CPT 45378; principal; 2023-06-19 08:40)
DX: Z12.11 Encounter for screening for malignant neoplasm of colon (principal); Z85.048 Personal history of other malignant neoplasm of rectum, rectosigmoid junction, and anus; Z86.010 Personal history of colon polyps; D12.5 Benign neoplasm of sigmoid colon; Z92.21 Personal history of antineoplastic chemotherapy; Z92.3 Personal history of irradiation; K62.7 Radiation proctitis; K57.30 Diverticulosis of large intestine without perforation or abscess without bleeding; K64.8 Other hemorrhoids; I10 Essential (primary) hypertension; E78.00 Pure hypercholesterolemia, unspecified; E11.9 Type 2 diabetes mellitus without complications; Z79.82 Long term (current) use of aspirin; Z79.84 Long term (current) use of oral hypoglycemic drugs; Z79.899 Other long term (current) drug therapy
CPT/HCPCS: 45380; 82947; 88305; J2704

== ENCOUNTER 2024-05-17 13:16 | Outpatient (REF) | payer MEDICARE, SELFPAY ==
--- NOTE | ~2024-05-17 | XR_ITS ---
EXAMINATION: XR KNEE, LEFT CLINICAL INFORMATION: oa COMPARISON: None available. TECHNIQUE: Four views of the left knee. FINDINGS: There is mild loss of medial and patellofemoral compartment joint space with mild periarticular spurring. No loose bodies, joint effusion seen. No visible acute fracture or dislocation. The soft tissues are normal. XR/XR knee LT 4V IMPRESSION: Mild degenerative osteoarthritis medial and patellofemoral compartments. Electronically signed by: Gene Montenegro MD 05/18/2024 10:32 AM HANS
--- OUTSIDE RECORDS SUMMARY | 2024-05-17 16:37 | XMS_ITS ---
Author Organization [facility] Address [address] [place] [id number] Care Team Providers Care Cell Installer Name Role Phone Kim Grace Primary Care Provider Unavailab Andreas Staton Unavailable [phone] Encounters Encounter Location Date Provider Diagnosis [facility] [address] [place] [address] 08/31/2023 Andreas Russo PLAN OF TREATMENT No Information
--- OUTSIDE RECORDS SUMMARY | 2024-05-17 16:37 | XMS_ITS ---
Author Organization [facility] Address [address] [place] [address] Care Team Providers Care Flat Grinder Operator Name Role Phone Kim Grace Primary Care Provider Unavailab Andreas Staton Unavailable [phone] REASON FOR VISIT retal ca,screening,hx polyps Encounters Encounter Location Date Provider Diagnosis [facility] Outpatient [address], [place] [phone] 06/10/2023 Andreas Russo PLAN OF TREATMENT No Information
--- OUTSIDE RECORDS SUMMARY | 2024-05-17 16:37 | XMS_ITS ---
Author Organization [facility] Address [address] [place] [address] Care Team Providers Care Media Monitor Name Role Phone Kim Grace Primary Care Provider Unavailab Andreas Staton Unavailable [phone] REASON FOR VISIT history, colon screening PROBLEMS Problem Type ICD Code Onset Dates Problem Status W/U Status Risk SNOMED Code Notes Problem Personal history of other malignant neoplasm of rectum, rectosigmoid junction, and anus (Z85.048) Active confirmed History of lo wer gastrointestinal tract neoplasm (134984321) Problem Diverticulosis of large intestine without perforation or abscess without bleeding (K57.30) Active confirmed Diverticul ar disease of colon (472863886) Encounters Encounter Location Date Provider Diagnosis [facility] Outpatient [address] [place], [place] [id number] 06/19/2023 Andreas Russo Encounter for scre ening colonoscopy Z12.11 ; Colon polyps K63.5 ; Personal history of other malignant neoplasm of rectum, rectosigmoid junction, and anus Z85.048 ; Angiodysplasia of colon K55.20 and Diverticulosis of large intestine without perforation or abscess without bleeding K57.30 ASSESSMENTS Encounter Date Diagnosis Assessment Notes Treatment Notes Treatment Clinical Notes 06/19/2023 Encounter for screening colonoscopy (ICD-10 - Z12.11) 06/19/2023 Colon polyps (ICD-10 - K63.5) 06/19/2023 Personal history of other malignant neoplasm of rectum, rectosigmoid junction, and anus (ICD-10 - Z85.048) 06/19/2023 Angiodysplasia of colon (ICD-10 - K55.20) 06/19/2023 Diverticulosis of large intestine without perforation or abscess without bleeding (ICD-10 - K57.30) PLAN OF TREATMENT No Information
--- OUTSIDE RECORDS SUMMARY | 2024-05-17 16:37 | XMS_ITS | Patient Health Record ---
Author Organization [facility] Address [address] [place] [address] Care Team Providers Care Community Marketing Coordinator Name Role Phone Kim Grace Primary Care Provider Unavailab Andreas Staton Unavailable [phone] ALLERGIES No Known Allergies RESULTS Component Value Reference Range Notes Glucose, Whole Blood Reviewed date:06/19/2023 12:52:43 PM Interpretation: Performing Lab:[facility], [address] [place] [id number] Notes/Report: Glucose, Whole Blood 161 60-115 mg/dL METER # : [id number] Pathology Reviewed date:06/30/2023 08:44:52 AM Interpretation: Performing Lab:[facility], [address] [place] [phone] Notes/Report: REASON FOR REFERRAL No Information MEDICATIONS Medication SIG (Take, Route, Frequency, Duration) Notes Start Date End Date Status Irbesartan 300 MG TAKE ONE TABLET BY MOUTH EVERY DAY (DISCONTINUE 150 MG STRENGTH) Oral for 90 Active Aspirin 81 81 MG 1 tablet Orally Once a day/prn Active B-12 2500 MCG ONE SUBLINGUAL DAILY Sublingual for 90 Not-Taking glipiZIDE ER 5 MG Oral for 90 Active Vitamin B12 1000 MCG 1 tablet Orally Onc e a day for 30 day(s) Active Ezetimibe 10 MG TAKE ONE TABLET BY MOUTH EVERY DAY Oral for 90 Active Vitamin B12 TR 2000 MCG TAKE ONE TABLET BY MOUTH EVERY DAY Oral for 90 Active Metoprolol Succinate ER 100 MG TAKE ONE TABLET BY MOUTH EVERY DAY Oral for 90 Active amLODIPine Besylate 5 MG 1 tablet Orally Active metFORMIN HCl 1000 MG TAKE ONE TABLET BY MOUTH TWICE A DAY Oral for 90 Active Janumet 50-1000 MG TAKE 1 TABLET BY LUISA TH TWO TIMES A DAY Oral for 30 Not-Taking Atorvastatin Calcium 10 MG TAKE ONE TABLET BY MOUTH AT BEDTIME Oral for 90 Active IMMUNIZATIONS Vaccine Route Administration Date Status Comme nts Influenza Unknown 01/12/2018 Administered Influenza Unknown 11/14/2018 Administered Influenza Unknown 12/14/2020 Administered SOCIAL HISTORY Tobacco Use: Social History Observation Description Date Details (start date - stop date) Never Smoker NA - NA Sex Assigned At : Social History Observation Description Sex Assigned At Unknown Tobacco Use/Smoking Question Answer Notes Patient is a nonsmoker Alcohol Screen Question Answer Notes Did you have a drink containing alcohol in the p ast year? No Points 0 Interpretation Negative PROBLEMS Problem Type ICD Code Onset Dates Problem Status W/U Status Risk SNOMED Code Notes Problem Colon cancer screening (Z12.11) Active confirmed 164038774 Problem Rectal bleeding (K62.5) Active confirmed 38795251 Problem Encounter for screening for malignant neoplasm of colon (Z12.11) Active confirmed Screening for malignant neoplasm of colon (493762396) Problem History of adenomatous polyp of colon (Z86.010) Active confirmed 466559620 Problem Diverticulosis of large intestine without perforation or abscess without bleeding (K57.30) Active confirmed Diverticul ar disease of colon (795480735) Problem Personal history of other malignant neoplasm of rectum, rectosigmoid junction, and anus (Z85.048) Active confirmed History of lo wer gastrointestinal tract neoplasm (793800283) Problem Preprocedural examination (Z01.818) Active confirmed 167223544225130 Problem Aspirin long-term use (Z79.82) Active confirmed 734994821219035 Problem Rectal pain (K62.89) Active confirmed 04209907 Problem Constipation, unspecified constipation type (K59.00) Active confirmed 57814801 Problem Anemia, unspecified type (D64.9) Active confirmed 785125604 Problem History of rectal cancer (Z85.048) Active confirmed 778544152 Problem Diverticulosis of colon (K57.30) Active confirmed Diverticulosi s of colon (910490359) Problem Positive colorectal cancer screening using Cologuard test (R19.5) Active confirmed 795751506 Problem Rectal cancer (C20) Active confirmed 215922245 Encounters Encounter Location Date Provider Diagnosis [facility] Out[facility] [address] [place], [place] [phone] 06/10/2023 Andreas Russo [facility] Out[facility] [address] [place], [place] [phone] 06/19/2023 Andreas Russo Encounter for screen ing colonoscopy Z12.11 ; Colon polyps K63.5 ; Personal history of other malignant neoplasm of rectum, rectosigmoid junction, and anus Z85.048 ; Angiodysplasia of colon K55.20 and Diverticulosis of large intestine without perforation or abscess without bleeding K57.30 [facility] [address] [place] [address] 08/31/2023 Andreas Russo ASSESSMENTS Encounter Date Diagnosis Assessment Notes Treatment [...] bleeding (ICD-10 - K57.30) PLAN OF TREATMENT Pending Test Test Name Order Date CT ABD & PELVIS WITH CONTRAST 08/22/2018 CT CHEST WITH CONTRAST 08/23/2018 Future Test Test Name Order Date COLONOSCOPY 08/05/2018 COLONOSCOPY 09/13/2019 COLONOSCOPY 01/03/2021 COLONOSCOPY 11/18/2022 COLONOSCOPY 03/10/2023 Insurance Providers Payer Name Payer Address Payer Phone Subscriber Number Group Number Insured Name Patient Relationship to Insured Coverage Start Date Coverage End Date MEDICARE OF [place] [address] [place] [address] [id number] ZOHAIB GARCIA Self - patient is the insured [facility] SUPPLEMENTAL PLAN [address] [place] [address] [phone] [id number] ZOHAIB GARCIA Self - patient is the insured MEDICAL (GENERAL) HISTORY Medical History History ICD Code NIDDM Hypertension Hypercholesterolemia Allergies Rectal cancer-adenocarcinoma - found 08/20/18-distal lesion just above the dentate line--saw Dr. Mcclelland at [facility] who recommended surgery, but she went to [facility] in [facility] for a 2nd opinion and had XRT/chemo from mid-09/2018 - 11/16/18 for 6 weeks--scheduled to go back in 01/2019 for MRI/CT/Follow up appts with their surgeon and oncologist. Followup studies at [facility] have included negative MRIs and a negative scope . Apparently there is no plan for surgical treatment in regard to the rectal cancer as of the 06/2019 OV with me. Denies [place],CVA,Lung disease,renal disease EGD in 08/2018--erosive esoph agitis, small to mod-sized HH, buiopsies neg for celaic disease and Wadsworth's esophagus, benign gastric polyps Hyponatremia of 115 due to Hctz treated at [facility] for 5 days Describes a negative Flexsig and MRI at end of 06/2019 and beginning of 07/2019 with the surgeon at [facility] Colonoscopy in October 0 was negative other than a hyperplastic rectal polyp. The previous site of the rectal cancer did show some scarring but did not show any sign of residual tumor Followup at [facility] in 09/2020-partha dunbar describes a CT scan, MRI, and sigmoidoscopy in the doctor's office which were all nonrevealing. She states that they recommended a followup colonoscopy with me for this year Followup screening colonosco py in December 2020 revealed 2 small tubular adenomas that were removed, as well as some mild radiation changes with telangiectasias in the rectum Surgical History Surgery Date(Month/Year) Left breast biopsy-benign cateracts bilateral
== END 2024-05-17 13:17 | disposition home or self-care (01) ==
LOC: HO.XRAY 13:16
PROVIDERS: PCP Internal Medicine; Visit Provider Internal Medicine
DX: M17.12 Unilateral primary osteoarthritis, left knee (principal)
CPT/HCPCS: 73564

== ENCOUNTER → 2024-05-17 13:22 | Outpatient (BNV) | payer MEDICARE, SELFPAY | PROVIDERS: PCP Internal Medicine; Visit Provider Radiology Diagnostic Radiology | DX: M17.12 Unilateral primary osteoarthritis, left knee (principal) | CPT/HCPCS: 73564 ==

== ENCOUNTER 2024-07-28 13:50 | Outpatient (AMB) | payer MEDICARE, SELFPAY ==
--- NOTE | 2024-07-28 13:52 | A.OFFVIS_ITS ---
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 Patient reports that her pain has been wrosening recently. She has been wearing a knee brace which provides mild relief. She has also tried and failed physical therapy. Injection done in primary care. She has increased pain with gait initiation. She takes Aleve PRN which is helpful. She also has been using Diclofenac topical gel with minimal improvement. 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 She states she had an injection by her primary care doctor that was not particularly helpful. She describes this being injected in the medial knee. She states she went to the gym in March and overdid it and since then has had pain. She is able to ambulate but describes difficulty with extended ambulation. She has been doing physical therapy. She is here today with her daughter. [facility] Medical History (Updated 08/01/24 @ 10:18 by Ty Amaral MD) On beta fernando at home Rectal cancer Hypercholesteremia Hypertension Non-insulin dependent type 2 diabetes mellitus Surgical History Hx of bilateral cataract extraction H/O left breast biopsy H/O: H/O endoscopy H/O colonoscopy Social History Household Members Other:: Daughter will be here to help Are you a primary career portals teacher to a significant other at home: No Do you presently have visiting nurse or other home services: No Patient Tobacco Use Status: Never used Tobacco Second Hand Smoke Exposure: No Female Reproductive History Menstrual Age of Menarche: 12 Physical Exam Extrem Other: On exam patient has sharp pain over the pes anserine bursa. Her knee range of motion is full and she has no pain along the medial or lateral joint line. Office Procedures Joint Inj/Aspir; Non-Pain Clin Joint Injection/Drain Details: Injected 1 mL of Decadron and 3 mL 1% lidocaine and 3 mL of 0.25% Marcaine. Site was prepped using aseptic technique. Patient tolerated the procedure well. Shoulders, Hips, Knees, Knee Large Joint Injection : Left Knee (pes anserine bursa) Coding Procedure code (CPT) selection complete Results Reviewed Results Reviewed: I personally reviewed relevant radiographs. Mild to moderate medial compartment osteoarthritis Assessment & Plan Assessment & Plan (1) Pes anserinus bursitis: Code(s): M70.50 - Other bursitis of knee, unspecified knee Category: Medical Plan: This is a 74-year-old woman with symptoms of pes anserine bursitis. She does have underlying medial compartment osteoarthritis of the diagnosis can be complicated but on examined seems all of her pain is coming from some pes anserine bursa. I injected the pes anserinus bursa. She states it prior knee injections have not helped. I recommend ice, anti-inflammatories and follow up with me in 3 months. (2) Non-insulin dependent type 2 diabetes mellitus: Code(s): E11.9 - Type 2 diabetes mellitus without complications Category: Medical Plan: I discussed the hyperglycemic effects of steroids. (3) Osteoarthritis of left knee: Code(s): M17.12 - Unilateral primary osteoarthritis, left knee Category: Medical Plan: Medications: New meloxicam 15 mg PO DAILY 30 tabs 1RF Coding Level of Care Code New Pt Level 4 (47543) Diagnoses Pes anserinus bursitis M70.50 Non-insulin dependent type 2 diabetes mellitus E11.9 Osteoarthritis of left knee M17.12 CPT Codes Shoulders, Hips, Knees, - Knee Large Joint Injection : Left Knee ([id number])
--- OUTSIDE RECORDS SUMMARY | 2024-07-28 14:30 | XMS_ITS ---
Author Organization [facility] Address [address] [place] [address] Care Team Providers Care [place]e Name Role Phone Kim Grace Primary Care Provider Unavailab Andreas Staton Unavailable [phone] REASON FOR VISIT history, colon screening Problems Problem Type SNOMED Code ICD Code Onset Dates Problem Status W/U Status Risk Notes Problem History of lower gastrointestinal tract neoplasm (725609439) Personal history of other malignant neoplasm of rectum, rectosigmoid junction, and anus (Z85.048) Active confirmed Problem Diverticular disease of colon (550460234) Diverticulosis of large intestine without perforation or abscess without bleeding (K57.30) Active confirmed Encounters Encounter Location Date Provider Diagnosis [facility] [place] [address] [place], [place] [phone] 06/19/2023 Andreas Russo Encounter for scre ening colonoscopy Z12.11 ; Colon polyps K63.5 ; Personal history of other malignant neoplasm of rectum, rectosigmoid junction, and anus Z85.048 ; Angiodysplasia of colon K55.20 and Diverticulosis of large intestine without perforation or abscess without bleeding K57.30 Assessments Encounter Date Diagnosis (ICD Code) Assessment Notes Treatment Notes Treatment Clinical Notes Section Notes 06/19/2023 Encounter for screening colonoscopy (ICD-10 - Z12.11) 06/19/2023 Colon polyps (ICD-10 - K63.5) 06/19/2023 Personal history of other malignant neoplasm of rectum, rectosigmoid junction, and anus (ICD-10 - Z85.048) 06/19/2023 Angiodysplasia of colon (ICD-10 - K55.20) 06/19/2023 Diverticulosis of large intestine without perforation or abscess without bleeding (ICD-10 - K57.30) Plan Of Treatment No Information Progress Notes * JENNIFER GARCIAUDOB:1950 ( 74 yo F)Acc No.[id number]:06/19/2023 COLON WITH MAC Patient:?ZOHAIB GARCIA Provider:?Andreas Russo MD :1950???Age:73 Y???Sex:Female D ate:06/19/2023 Address:[address] [place] [address] Pcp:Kim Grace Subjective: * Chief Complaints: * ???1. History, colon screeni ng. * Medical History:? Objective: * Vitals:? Assessment: * Assessment: 1.?Encounter for screening c olonoscopy - Z12.11 (Primary)???2.?Colon polyps - K63.5???3.?Personal history of other malignant neoplasm of rectum, rectosigmoid junction, and anus - Z85.048???4.?Angiodysplasia of colon - K55.20? ?5.?Diverticulosis of large intestine without perforation or abscess without bleeding - K57.30??? Plan: * Treatment: * Procedure Codes:?61618 COLON OSCOPY AND BIOPSY, Modifiers: PT , 0529F INTRVL 3+YRS PTS CLNSCP DOCD, Modifiers: 1P , 0528F RCMND FLW-UP 10 YRS DOCD, Modifiers: 1P * * The named appointment provid er may or may not be the originator of this progress note, and it is not deemed complete until electronically signed by the appointment provider. Sign off status: Pending * Provider:?Andreas Russo MD Date:? 024 Generated for Printi beth/Candida/eTransmitting on:?07/28/2024 02:30 PM EDT
--- OUTSIDE RECORDS SUMMARY | 2024-07-28 14:30 | XMS_ITS ---
Author Organization [facility] Address [address] [place] [address] Care Team Providers Care Java Oracle Developer Name Role Phone Kim Grace Primary Care Provider Unavailab Andreas Staton Unavailable [phone] REASON FOR VISIT retal ca,screening,hx polyps Encounters Encounter Location Date Provider Diagnosis [facility] Outpatient [address] [place] [phone] 06/10/2023 Andreas Russo Plan Of Treatment No Information Progress Notes * JENNIFER GARCIAUDOB:1950 ( 74 yo F)Acc No.[id number]:06/10/2023 COLON WITH MAC Patient:?ZOHAIB GARCIA Provider:?Andreas Russo MD :1950???Age:73 Y???Sex:Female D ate:06/10/2023 Address:[address] [place], [place] [phone] Pcp:Kim Grace Subjective: * Chief Complaints: * ???1. Retal ca,screening,hx polyps. * Medical History:? Objective: * Vitals:? Assessment: Plan: * Treatment: * * The named appointment provid er may or may not be the originator of this progress note, and it is not deemed complete until electronically signed by the appointment provider. Sign off status: Pending * Provider:?Adnreas Russo MD Date:? 024 Generated for Milton campos/Candida/eTransmitting on:?07/28/2024 02:30 PM EDT
--- OUTSIDE RECORDS SUMMARY | 2024-07-28 14:31 | XMS_ITS | Patient Health Record ---
Author Organization [facility] Address [address] [place] [address] Care Team Providers Care Stripping Cutter And Winder Name Role Phone Kim Grace Primary Care Provider Unavailab Andreas Staton Unavailable [phone] Allergies No Known Allergies Reason For Referral No Information Medications Medication SIG (Take, Route, Frequency, Duration) Notes [...] MOUTH AT BEDTIME Oral for 90 Active Immunizations Vaccine Route Administration Date Status Comme nts Influenza Unknown 01/12/2018 Administered Influenza Unknown 11/14/2018 Administered Influenza Unknown 12/14/2020 Administered Social History Tobacco Use: Social History Observation Description Date Details (start date - stop date) Never Smoker NA - NA Tobacco Use/Smoking Question Answer Notes Patient is a nonsmoker Alcohol Screen Question Answer Notes Did you have a drink containing alcohol in the p ast year? No Points 0 Interpretation Negative Section Notes: Nonsmoker; no alcohol Nonsmoker; no alcohol Nonsmoker; no alcohol Nonsmoker; no alcohol Nonsmoker; no alcohol Nonsmoker; no alcohol Problems Problem Type SNOMED Code ICD Code Onset Dates Problem Status W/U Status Risk Notes Problem 279182323 Colon cancer screening (Z12.11) Active confirmed Problem 32204430 Rectal bleeding (K62.5) Active confirmed Problem Screening for malignant neoplasm of colon (671907791) Encounter for screening for malignant neoplasm of colon (Z12.11) Active confirmed Problem 281014550 History of adenomatous polyp of colon (Z86.010) Active confirmed Problem Diverticulosis o f large intestine without perforation or abscess without bleeding (K57.30) Active confirmed Problem History of lower gastrointestinal tract neoplasm (220785683) Personal history of other malignant neoplasm of rectum, rectosigmoid junction, and anus (Z85.048) Active confirmed Problem 378428356046385 Preprocedural examination (Z01.818) Active confirmed Problem 493070277186881 Aspirin long-ter m use (Z79.82) Active confirmed Problem 18351060 Rectal pain (K62.89) Active confirmed Problem 41193015 Constipation, unspecified constipation type (K59.00) Active confirmed Problem 996334995 Anemia, unspecified type (D64.9) Active confirmed Problem 705663375 History of recta l cancer (Z85.048) Active confirmed Problem Diverticulosis of colon (205807366) Diverticulosis of colon (K57.30) Active confirmed Problem 691005725 Positive colorectal cancer screening using Cologuard test (R19.5) Active confirmed Problem 139055143 Rectal cancer (C20) Active confirmed Encounters Encounter Location Date Provider Diagnosis [facility] [address] [place] [address] 08/31/2023 Andreas Russo Plan Of Treatment Pending Test Test Name Order Date CT ABD & PELVIS WITH CONTRAST 08/22/2018 CT CHEST WITH CONTRAST 08/23/2018 Future Test Test Name Order Date COLONOSCOPY 08/05/2018 COLONOSCOPY 09/13/2019 COLONOSCOPY 01/03/2021 COLONOSCOPY 11/18/2022 COLONOSCOPY 03/10/2023 Insurance Providers Payer Name Payer Address Payer Phone Subscriber Number Group Number Insured Name Patient Relationship to Insured Coverage Start Date Coverage End Date MEDICARE OF [place] [address] [place] [address] [id number] ZOHAIB GARCIA Self - patient is the insured [facility] SUPPLEMENTAL PLAN [address] [place] [id number] ZOHAIB GARCIA Self - patient is the insured Medical (General) History Medical History History ICD Code NIDDM Hypertension Hypercholesterolemia Allergies Rectal cancer-adenocarcinoma - found 08/20/18-distal lesion just above the dentate line--saw Dr. Mcclelland at [facility] who recommended surgery, but she went to [facility] in [facility] for a 2nd opinion and had XRT/chemo from mid-09/2018 - 11/16/18 for 6 weeks--scheduled to go back in 01/2019 for MRI/CT/Follow up appts with their surgeon and oncologist. Followup studies at [facility] have included negative MRIs and a negative scope . Apparently there is no plan for surgical treatment in regard to the rectal cancer as of the 06/2019 OV with me. Denies [place],CVA,Lung disease,renal disease EGD in 08/2018--erosive esoph agitis, small to mod-sized HH, buiopsies neg for celaic disease and Wadsworth's esophagus, benign gastric polyps Hyponatremia of 115 due to Hctz treated at [facility] for 5 days Describes a negative Flexsig and MRI at end of 06/2019 and beginning of 07/2019 with the surgeon at [facility] Colonoscopy in October 0 was negative other than a hyperplastic rectal polyp. The previous site of the rectal cancer did show some scarring but did not show any sign of residual tumor Followup at [facility] in 09/2020-sh manjinder describes a CT scan, MRI, and sigmoidoscopy [...]
--- OUTSIDE RECORDS SUMMARY | 2024-07-28 14:31 | XMS_ITS ---
Author Organization [facility] Address [address] [place] [address] Care Team Providers Care Core Drilling Supervisor Name Role Phone Kim Grace Primary Care Provider Unavailab Andreas Staton Unavailable [phone] Encounters Encounter Location Date Provider Diagnosis [facility] [address] [place] [phone] 08/31/2023 Andreas Russo Plan Of Treatment No Information Progress Notes * CAESAR GARCIAOB:1950 ( 73 yo F)Acc No.[id number]:08/31/2023 Patient:?ZOHAIB GARCIA :1950???Age:73 Y???Sex:Female Address:[address] [place] [address], [address] * true * Date:? Generated for Milton campos/Candida/eTransmitting on:?07/28/2024 02:30 PM EDT
== END 2024-07-28 14:57 | disposition home or self-care (01) ==
LOC: HO.HOS 13:51
PROVIDERS: PCP Internal Medicine; Visit Provider Orthopaedic Surgery
DX: M70.52 Other bursitis of knee, left knee (principal); E11.9 Type 2 diabetes mellitus without complications; M17.12 Unilateral primary osteoarthritis, left knee
CPT/HCPCS: 20610; 99204

== ENCOUNTER → 2024-07-28 13:50 | Outpatient (BNVA) | payer MEDICARE, SELFPAY | PROVIDERS: PCP Internal Medicine; Visit Provider Orthopaedic Surgery | DX: M17.12 Unilateral primary osteoarthritis, left knee (principal); M70.52 Other bursitis of knee, left knee; E11.9 Type 2 diabetes mellitus without complications | CPT/HCPCS: 20610; 99202; J0665; J1100; J2003 ==

== ENCOUNTER 2024-09-26 11:11 | Outpatient (AMB) | payer MEDICARE, SELFPAY ==
--- OUTSIDE RECORDS SUMMARY | 2023-06-10 06:30 | XMS_ITS ---
Author Organization [facility] Address [address] [place] [id number] Care Team Providers Care Management Trainee Marketing Name Role Phone Kim Grace Primary Care Provider Unavailab Andreas Staton Unavailable [phone] REASON FOR VISIT retal ca,screening,hx polyps Encounters Encounter Location Date Provider Diagnosis [facility] Outpatient [address] [place] [phone] 06/10/2023 Andreas Russo Plan Of Treatment No Information Progress Notes * JENNIFER GARCIAUDOB:1950 ( 74 yo F)Acc No.[id number]:06/10/2023 COLON WITH MAC Patient: ZOHAIB ROLAND Provider: Sarita Russo MD :1950 A ge:73 Y S ex:Female Date:06/10/2023 Address:[address] [place], [place] [phone] Pcp:Kim Grace Subjective: * Chief Complaints: * 1 . Retal ca,screening,hx polyps. * Medical History: Objective: * Vitals: Assessment: Plan: * Treatment: * * The named appointment provid er may or may not be the originator of this progress note, and it is not deemed complete until electronically signed by the appointment provider. Sign off status: Pending * Provider: Sarita Russo MD Date: 06/10/2023 Generated for Milton campos/Candida/eTransmitting on: 0 09/26/2024 12:18 PM EDT
--- NOTE | 2024-09-26 11:18 | MHC.OFFVIS ---
Intake Visit Reasons: OV-Left knee OA & pes anserine bursitis Intake Note: Suellen is a 74 year old female who presents today for a follow up of her Left Knee OA & pes anserine bursitis. Pes anserine bursa was injected on 07/28/24. Patient reports that the injection provided no relief of her symptoms. She explains that she feels a sharp pain in the medial aspecgt of the knee Allergies JA Inhibitors Adverse Reaction (Verified 09/26/24 11:25) LARYNGEAL EDEMA HPI HPI OV-Left knee OA & pes anserine bursitis: Details: Suellen is a 74 year old female who presents today for a follow up of her Left Knee OA & pes anserine bursitis. Pes anserine bursa was injected on 07/28/24. Patient reports that the injection provided no relief of her symptoms. She explains that she feels a sharp pain in the medial aspect of the knee she states that walking and exercise bothers him medial aspect of her left knee. Pain is not tremendous but it certainly is not something she wants to live with. [facility] Medical History (Updated 08/01/24 @ 10:18 by Ty Amaral MD) On beta fernando at home Rectal cancer Hypercholesteremia Hypertension Non-insulin dependent type 2 diabetes mellitus Surgical History Hx of bilateral cataract extraction H/O left breast biopsy H/O: H/O endoscopy H/O colonoscopy Social History Household Members Other:: Daughter will be here to help Are you a primary healthcare liaison to a significant other at home: No Do you presently have visiting nurse or other home services: No Patient Tobacco Use Status: Never used Tobacco Second Hand Smoke Exposure: No Female Reproductive History Menstrual Age of Menarche: 12 Physical Exam Extrem Other: On exam patient has sharp pain over the pes anserine bursa and into the medial plateau with no joint line tenderness. Office Procedures Joint Inj/Aspir; Non-Pain Clin Joint Injection/Drain Details: Injected 1 mL of Decadron and 3 mL 1% lidocaine and 3 mL of 0.25% Marcaine. Site was prepped using aseptic technique. Patient tolerated the procedure well. Shoulders, Hips, Knees, Knee Large Joint Injection : Left Knee Coding Procedure code (CPT) selection complete Assessment & Plan Assessment & Plan (1) Non-insulin dependent type 2 diabetes mellitus: Code(s): E11.9 - Type 2 diabetes mellitus without complications Category: Medical Plan: Explained the hyperglycemic effects of steroids. (2) Osteoarthritis of left knee: Code(s): M17.12 - Unilateral primary osteoarthritis, left knee Category: Medical Plan: This is a 74-year-old with left knee osteoarthritis and symptoms of pain into the pes anserinus and region. I injected her bursa at last visit but this was not helpful. Today I injected her left knee. I will see her back in 3 months. Coding Level of Care Code Est Pt Level 4 (63995) Diagnoses Non-insulin dependent type 2 diabetes mellitus E11.9 Osteoarthritis of left knee M17.12 CPT Codes Shoulders, Hips, Knees, - Knee Large Joint Injection : Left Knee ([id number])
== END 2024-09-26 11:54 | disposition home or self-care (01) ==
LOC: HO.HOS 11:12
PROVIDERS: PCP Internal Medicine; Visit Provider Orthopaedic Surgery
DX: M17.12 Unilateral primary osteoarthritis, left knee (principal); E11.9 Type 2 diabetes mellitus without complications
CPT/HCPCS: 20610; 99214

== ENCOUNTER → 2024-09-26 11:11 | Outpatient (BNVA) | payer MEDICARE, SELFPAY | PROVIDERS: PCP Internal Medicine; Visit Provider Orthopaedic Surgery | DX: M17.12 Unilateral primary osteoarthritis, left knee (principal); E11.9 Type 2 diabetes mellitus without complications; Z79.52 Long term (current) use of systemic steroids | CPT/HCPCS: 20610; 99212; J0665; J1100; J2003 ==

== ENCOUNTER 2025-01-16 11:02 | Outpatient (AMB) | payer MEDICARE, SELFPAY ==
--- NOTE | 2025-01-16 11:12 | A.OFFVIS_ITS ---
Intake Visit Reasons: OV-Left knee OA & pes anserine bursitis Intake Note: Suellen is a 74 year old female who presents today for a follow up of her Left Knee OA & pes anserine bursitis. Hx of pes anserine bursa that was not helpful, Left knee joint injected 09/26/24. Patient reports that she had relief that lasted only a few days from the injection. She rpeorts that she is not having biltaeral knee pain. Allergies JA Inhibitors Adverse Reaction (Verified 09/26/24 11:25) LARYNGEAL EDEMA HPI HPI OV-Left knee OA & pes anserine bursitis: Details: Suellen is a 74 year old female who presents today for a follow up of her Left Knee OA & pes anserine bursitis. Hx of pes anserine bursa that was not helpful, Left knee joint injected 09/26/24. Patient reports that she had relief that [place] only a few days from the injection. She rpeorts that she is not having bilateral knee pain. [facility] Medical History (Updated 01/16/25 @ 13:15 by Ty Amaral MD) On beta fernando at home Rectal cancer Hypercholesteremia Hypertension Non-insulin dependent type 2 diabetes mellitus Surgical History Hx of bilateral cataract extraction H/O left breast biopsy H/O: H/O endoscopy H/O colonoscopy Social History Household Members Other:: Daughter will be here to help Are you a primary health care marketing specialist to a significant other at home: No Do you presently have visiting nurse or other home services: No Patient Tobacco Use Status: Never used Tobacco Second Hand Smoke Exposure: No Female Reproductive History Menstrual Age of Menarche: 12 Physical Exam Exam Exam: Mostly anterior knee pain. Lateral on the right slightly more and medial in the left slightly more. No effusion. Walking comfortably. Full range of motion. Assessment & Plan Assessment & Plan (1) Bilateral knee pain: Code(s): M25.561 - Pain in right knee; M25.562 - Pain in left knee Category: Medical Plan: This is a 74-year-old woman with bilateral knee pain. She is very active and able to engage in her daily activities but does have some nonspecific anterior knee pain when she does so. Her function is too high to warrant any aggressive treatment. I did write her a prescription for physical therapy. She can see me on an as-needed basis. Orders: Orders PT Evaluation and Treatment Today M25.561 - Pain in right knee, M25.562 - Pain in left knee Coding Level of Care Code Est Pt Level 3 (21393) Diagnoses Bilateral knee pain M25.561; M25.562
--- OUTSIDE RECORDS SUMMARY | 2025-01-16 13:55 | XMS_ITS | Patient Health Record ---
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 Role Phone Kim Grace Primary Care Provider Unavailab Andreas Staton Unavailable [phone] Allergies No Known Allergies Reason For Referral No Information Medications Medication SIG (Take, Route, Frequency, Duration) Notes Start Date End Date Status Irbesartan 300 MG TAKE ONE TABLET BY MOUTH EVERY DAY (DISCONTINUE 150 MG STRENGTH) Oral; Duration: 90 Active Aspirin 81 81 MG 1 tablet Orally Once a day/prn Active B-12 2500 MCG ONE SUBLINGUAL DAILY Sublingual; Duration: 90 Not-Taking glipiZIDE ER 5 MG Oral; Duration: 90 Active Vitamin B12 1000 MCG 1 tablet Orally Onc e a day; Duration: 30 day(s) Active Ezetimibe 10 MG TAKE ONE TABLET BY MOUTH EVERY DAY Oral; Duration: 90 Active Vitamin B12 TR 2000 MCG TAKE ONE TABLET BY MOUTH EVERY DAY Oral; Duration: 90 Active Metoprolol Succinate ER 100 MG TAKE ONE TABLET BY MOUTH EVERY DAY Oral; Duration: 90 Active amLODIPine Besylate 5 MG 1 tablet Orally Active metFORMIN HCl 1000 MG TAKE ONE TABLET BY MOUTH TWICE A DAY Oral; Duration: 90 Active Janumet 50-1000 MG TAKE 1 TABLET BY LUISA TH TWO TIMES A DAY Oral; Duration: 30 Not-Taking Atorvastatin Calcium 10 MG TAKE ONE TABLET BY MOUTH AT BEDTIME Oral; Duration: 90 Active Immunizations Vaccine Route Administration Date [...] Problem Status W/U Status Risk Notes Problem Colon cancer screening (717336471) Colon cancer screening (Z12.11) Active confirmed Problem Rectal bleeding (14969410) Rectal bleeding (K62.5) Active confirmed Problem Screening for malignant neoplasm of colon (394756233) Encounter for screening for malignant neoplasm of colon (Z12.11) Active confirmed Problem History of adenomatous polyp of colon (483659393) History of adenomatous polyp of colon (Z86.010) Active confirmed Problem Diverticular disease of colon (391177031) Diverticulosis of large intestine without perforation or abscess without bleeding (K57.30) Active confirmed Problem History of lower gastrointestinal tract neoplasm (891108047) Personal history of other malignant neoplasm of rectum, rectosigmoid junction, and anus (Z85.048) Active confirmed Problem Preprocedural examination (024845238519441) Preprocedural examination (Z01.818) Active confirmed Problem Long-term current use of aspirin (677627917516062) Aspirin long-term use (Z79.82) Active confirmed Problem Rectal pain (53299499) Rectal pain (K62.89) Active confirmed Problem Constipation (93865997) Constipation, unspecified constipation type (K59.00) Active confirmed Problem Anemia (578090276) Anemia, unspecified type (D64.9) Active confirmed Problem History of malignant neoplasm of rectum (129313063) History of rectal cancer (Z85.048) Active confirmed Problem Diverticulosis of colon (393679452) Diverticulosis of colon (K57.30) Active confirmed Problem Abnormal feces (744989901) Positive colorectal cancer screening using Cologuard test (R19.5) Active confirmed Problem Rectal cancer (237767601) Rectal cancer (C20) Active confirmed Plan Of Treatment Pending Test Test Name Order Date CT ABD & PELVIS WITH CONTRAST 08/22/2018 CT CHEST WITH CONTRAST 08/23/2018 Future Test Test Name Order Date COLONOSCOPY 08/05/2018 COLONOSCOPY 09/13/2019 COLONOSCOPY 01/03/2021 COLONOSCOPY 11/18/2022 COLONOSCOPY 03/10/2023 Insurance Providers Payer Name Payer Address Payer Phone Subscriber Number Group Number Insured Name Patient Relationship to Insured Coverage Start Date Coverage End Date MEDICARE OF JO[employer] [address] [place] [address] [phone] [id number] ZOHAIB GARCIA Self - patient is the insured [facility] [employer] [address] [place] [address] [phone] [id number] ZOHAIB GARCIA Self - patient is the insured Medical (General) History Medical History History ICD Code NIDDM Hypertension Hypercholesterolemia Allergies Rectal cancer-adenocarcinoma - found 08/20/18-distal lesion just above the dentate line--saw Dr. Mcclelland at [facility] who recommended surgery, but she went to [facility] in [facility] for a 2nd opinion and had XRT/chemo from mid-09/2018 - 11/16/18 for 6 weeks--scheduled to go back in 01/2019 for MRI/CT/Follow up appts with their surgeon and oncologist. Followup studies at [facility] have included negative MRIs and a negative scope . Apparently there is no plan for surgical treatment in regard to the rectal cancer as of the 06/2019 OV with me. Denies LA,CVA,Lung disease,renal disease EGD in 08/2018--erosive esoph agitis, small to mod-sized HH, buiopsies neg for celaic disease and Wadsworth's esophagus, benign gastric polyps Hyponatremia of 115 due to Hctz treated at [facility] for 5 days Describes a negative Flexsig and MRI at end of 06/2019 and beginning of 07/2019 with the surgeon at [facility] Colonoscopy in October 0 was negative other than a hyperplastic rectal polyp. The previous site of the rectal cancer did show some scarring but did not show any sign of residual tumor Followup at [facility] in 09/2020-sh manjinder describes a CT scan, [...]
== END 2025-01-16 12:14 | disposition home or self-care (01) ==
LOC: HO.HOS 11:03
PROVIDERS: PCP Internal Medicine; Visit Provider Orthopaedic Surgery
DX: M25.561 Pain in right knee (principal); M25.562 Pain in left knee
CPT/HCPCS: 99213

== ENCOUNTER → 2025-01-16 11:02 | Outpatient (BNVA) | payer MEDICARE, SELFPAY | PROVIDERS: PCP Internal Medicine; Visit Provider Orthopaedic Surgery | DX: M25.561 Pain in right knee (principal); M25.562 Pain in left knee | CPT/HCPCS: 99212 ==